=== PATIENT | female | born 1980 ===

== ENCOUNTER 2019-10-09 03:10 | Inpatient (IN) | payer OTHER ==
[~2019-10-09 03:10] MED LIST: ELECTROLYTE-148 SOLN 500 ML IV ONE
[2019-10-09] MEDS ORDERED: ELECTROLYTE-148 SOLN 1,000 ML IV SCH ×2 (04:10→08:45)
[2019-10-09] MEDS ORDERED: AMPICILLIN - 2 GM in SODIUM CHLORIDE 100 ML IVPB ONE (04:30)
[2019-10-09 05:03] VITALS: BMI 36.0
[2019-10-09 05:08] LABS: BASO % 0.4 % (0-2.0); EOS % 0.9 % (0-4.5); HEMATOCRIT 37.1 % (32.4-45.2); HEMOGLOBIN 12.6 GM/dL (10.7-15.3); MCH 30.6 pg (25.7-33.7); MCHC 33.8 g/dl (32.0-36.0); MEAN CELL VOLUME 90.5 fl (80-96); MEAN PLT VOLUME 9.8 fl (7.5-11.1); NEUT % 71.7 % (42.8-82.8); PLATELET COUNT 202 K/MM3 (134-434); RDW 14.4 % (11.6-15.6); WHITE BLOOD COUNT 10.3 K/mm3 (4.0-10.0)
[2019-10-09 05:15] LABS: RETICULOCYTES 1.58 % (0.5-1.5)
[2019-10-09 05:22] LABS: INR 0.86 (0.83-1.09); PROTHROMBIN TIME (PATIENT) 10.1 SEC (9.7-13.0)
[2019-10-09 05:25] LABS: ACTIVATED PTT 26.5 SECONDS (25.2-36.5)
[2019-10-09 05:33] LABS: ALBUMIN 2.7 g/dl (3.4-5.0); BILIRUBIN,TOTAL 0.1 mg/dL (0.2-1); BLOOD UREA NITROGEN 10.3 mg/dL (7-18); CALCIUM 8.9 mg/dL (8.5-10.1); CREATININE 0.6 mg/dL (0.55-1.3); POTASSIUM 3.9 mmol/L (3.5-5.1); TOT PROT 6.2 g/dl (6.4-8.2); URIC ACID 4.6 mg/dL (2.6-7.2)
[2019-10-09 05:53] LABS: URINE APPEARANCE CLEAR; URINE BILIRUBIN NEGATIVE (NEGATIVE); URINE COLOR YELLOW; URINE GLUCOSE (UA) NEGATIVE (NEGATIVE); URINE KETONE NEGATIVE (NEGATIVE); URINE LEUK ESTERASE NEGATIVE (NEGATIVE); URINE NITRITE NEGATIVE (NEGATIVE); URINE PROTEIN NEGATIVE (NEGATIVE); URINE UROBILINOGEN 0.2 mg/dL (0.2-1.0)
[2019-10-09] MEDS ORDERED: AMPICILLIN SODIUM 2 GM VIAL ONE (08:28)
[2019-10-09] MEDS ORDERED: PROMETHAZINE HCL 25 MG/1 ML VIAL ONE (08:29)
[2019-10-09] MEDS ORDERED: BUTORPHANOL TARTRATE 2 MG/ML VIAL ONE (08:29)
[2019-10-09] MEDS ORDERED: AMPICILLIN - 1 GM in SODIUM CHLORIDE 100 ML IVPB SCH (08:30)
[2019-10-09] MEDS ORDERED: PROMETHAZINE HCL 25 MG/1 ML VIAL IVPB ONE (08:34)
[2019-10-09] MEDS ORDERED: BUTORPHANOL TARTRATE 1 MG/ML VIAL IVPB ONE (08:34)
--- NOTE | 2019-10-09 08:34 | HP ---
Past Medical History - Primary Care Physician PCP:: Ulises Oconnor - Admission Chief Complaint: labor. iup at 37 week. obesity History of Present Illness: 39 yo EDC 10/25 2019 EGA 37.5 week with co srom and active labor History Source: Patient Limitations to Obtaining History: No Limitations - Past Medical History ...: 3 ...Para: 2 ...Term: 2 ...: 0 ...Spon : 0 ...Induced : 0 ...Living Children: 2 ...Multiple Gestation: 0 ... Weeks Gestation by Dates: 37.5 ...EDC by Dates: 10/25/19 - Past Surgical History Past Surgical History: Yes: None Hx Myomectomy: No Hx Transabdominal Cerclage: No - Smoking History Smoking history: Never smoked Have you smoked in the past 12 months: No - Alcohol/Substance Use Hx Alcohol Use: No - Social History Usual Living Arrangement: Yes: With Spouse History of Recent Travel: No Home Medications - Allergies Allergies/Adverse Reactions: Allergies Allergy/AdvReac Type Severity Reaction Status Date / Time No Known Drug Allergies Allergy Verified 10/09/19 04:57 Review of Systems - Review of Systems Constitutional: reports: No Symptoms Eyes: reports: No Symptoms HENT: reports: No Symptoms Neck: reports: No Symptoms Cardiovascular: reports: No Symptoms Respiratory: reports: No Symptoms Gastrointestinal: reports: Abdominal Pain Genitourinary: reports: No Symptoms Breasts: reports: No Symptoms Reported Musculoskeletal: reports: No Symptoms Integumentary: reports: No Symptoms Neurological: reports: No Symptoms Endocrine: reports: No Symptoms Hematology/Lymphatic: reports: No Symptoms Psychiatric: reports: No Symptoms Physical Exam - Maternity Vital Signs: Vital Signs Temperature 98.1 F 10/09/19 07:00 Pulse Rate 94 H 10/09/19 07:30 Respiratory Rate 18 10/09/19 04:53 Blood Pressure 115/66 10/09/19 07:30 O2 Sat by Pulse Oximetry (%) Constitutional: Yes: Well Nourished, No Distress, Obese - Abdominal Exam/OB Fundal Height: 38 Number of Fetuses: Single Presentation: Vertex Category: I - Vaginal Exam/OB Dilatation (cm): 4 Effacement (%): 80 Amniotic Membrane Status: Ruptured Presentation: Vertex/Position Station: -1 - Physical Exam Musculoskeletal: Yes: WNL Extremities: Yes: WNL Psychiatric: Yes: WNL, Alert, Oriented - Labs Lab Results: CBC, BMP 10/09/19 04:50 10/09/19 04:50 Hemorrhage Risk Assessment - Risk Factors Risk Score: 0 Risk Level: Low Risk Problem List - Problems (1) 37 weeks gestation of Problems reviewed: Yes Code(s): Z3A.37 - 37 WEEKS GESTATION OF (2) Obesity (BMI 35.0-39.9 without comorbidity) Problems reviewed: Yes Code(s): E66.9 - OBESITY, UNSPECIFIED (3) Labor established Problems reviewed: Yes Code(s): ZWF5922 - Assessment/Plan IUP at 37 week srom Active labor Plan Admit stadol
[2019-10-09] MEDS ORDERED: BISACODYL 10 MG SUPP.RECT PR PRN (08:40)
[2019-10-09] MEDS ORDERED: IBUPROFEN 600 MG TABLET (FP) PO PRN (08:40)
[2019-10-09] MEDS ORDERED: oxyCODONE HCL 5 MG TABLET PO PRN (08:40)
[2019-10-09] MEDS ORDERED: BENZOCAINE 20% 57 GM BOTTLE TP PRN (08:40)
[2019-10-09] MEDS ORDERED: WITCH HAZEL 50% (TUCKS) 40 PAD/JAR PAD TP PRN (08:40)
[2019-10-09] MEDS ORDERED: ACETAMINOPHEN 325 MG TABLET (FP) PO PRN (08:40)
[2019-10-09] MEDS ORDERED: BENZOCAINE 28 GM HEMORRHOIDAL OINTMENT RC PRN (08:40)
[2019-10-09] MEDS ORDERED: METHYLERGONOVINE MALEATE 0.2 MG/1 ML AMP IM PRN (08:40)
--- NOTE | 2019-10-09 08:40 | PN ---
Ante-Partal Exam - Subjective Subjective: Pt with inc pain desires pain meds Vital Signs: Vital Signs Temperature 98.1 F 10/09/19 07:00 Pulse Rate 94 H 10/09/19 07:30 Respiratory Rate 18 10/09/19 04:53 Blood Pressure 115/66 10/09/19 07:30 O2 Sat by Pulse Oximetry (%) Bleeding: No Headache: No Visual changes: No Right upper quadrant pain: No - Contractions Contractions: Yes Regularity: Regular Monitor Mode: External - Exam during Labor Variability: Moderate Heart Rate Location: [facility] Category: I Exam: Vaginal Dilatation (cm): 5 Effacement (%): 100 Amniotic Membrane Status: Ruptured Presentation: Vertex - Intrapartum Hemorrhage Risk Risk Score: 0 Risk Level: Low Risk - Assessment/Plan Assessment/Plan: iup at 37 srom active labor Plan stadol
[2019-10-09] MEDS ORDERED: OXYTOCIN 20 UNITS in 0.9% NS 20 UNIT/1,000 ML INFUS.BAG IV ONE (08:53)
[2019-10-09] MEDS ORDERED: PCA PUMP NR ONE (09:11)
[2019-10-09] MEDS ORDERED: FENTANYL/BUPIVACAINE/NS/PF - PCEA - 50 ML DISP.SYRIN EP ONE (09:11)
[2019-10-09] MEDS ORDERED: NALOXONE HCL 0.4 MG/ML VIAL IVPUSH PRN (10:11)
[2019-10-09] MEDS ORDERED: FENTANYL/BUPIVACAINE/NS/PF - PCEA - 50 ML DISP.SYRIN EP SCH (10:15)
[2019-10-09 11:42] LABS: CORD BASE EXCESS -3.4 mmol/L (0-2); CORD PCO2 51.1 mmHg (30-78); CORD pH 7.29 (7.14-7.44)
[2019-10-09 11:46] LABS: CORD BASE EXCESS -4.5 mmol/L (0-2); CORD HCO3 20.6 mmHg (20-29); CORD PCO2 38.5 mmHg (30-78); CORD pH 7.347 (7.14-7.44)
--- NOTE | 2019-10-09 14:04 | PN ---
Delivery - Delivery Vaginal Delivery: No Problems Type of Anesthesia: Epidural Episiotomy/Laceration: None EBL (cc): 300 Delivery, Single - Stages of Labor Date 1st Stage Initiatied: 10/09/19 Time 1st Stage Initiated: 08:00 Date 2nd Stage Initiated: 10/09/19 Time 2nd Stage Initiated: 10:25 Date of Delivery: 10/09/19 Time of Delivery: 10:37 Time Placenta Delivered: 10:40 Placenta: Yes: Spontaneous - Condition of Infant Aircraft Parts Assembler/Plate Conditioner Present: No Infant Gender: Male Position: Left, OA Total Hours ROM (Hrs/Mins): 8h55m - 1 Minute Total Score: 9 5 Minutes Total Score: 9 - Feeding Plan Initial Plan: Elected not to breastfeed exclusively throughout hospitalization
[2019-10-09] MEDS ORDERED: OXYTOCIN 20 UNITS in 0.9% NS 20 UNIT/1,000 ML INFUS.BAG IV SCH (14:15)
[2019-10-10 06:13] VITALS: PULSE 90
[2019-10-10 08:15] LABS: BASO % 0.3 % (0-2.0); EOS % 1.9 % (0-4.5); HEMATOCRIT 34.4 % (32.4-45.2); HEMOGLOBIN 11.5 GM/dL (10.7-15.3); LYMPH % 25.2 % (8-40); MCH 31.3 pg (25.7-33.7); MCHC 33.6 g/dl (32.0-36.0); MEAN CELL VOLUME 93.3 fl (80-96); MEAN PLT VOLUME 10.3 fl (7.5-11.1); MONO % 5.4 % (3.8-10.2); NEUT % 67.2 % (42.8-82.8); PLATELET COUNT 160 K/MM3 (134-434); RBC 3.68 M/mm3 (3.60-5.2); RDW 14.4 % (11.6-15.6); WHITE BLOOD COUNT 10.5 K/mm3 (4.0-10.0)
--- NOTE | 2019-10-10 09:45 | PN ---
Post Progress Note - Subjective Subjective: Doing well Ready to go home. Type of Delivery: Vital Signs: Vital Signs Temperature 97.7 F 10/10/19 06:00 Pulse Rate 90 10/10/19 06:00 Respiratory Rate 18 10/10/19 06:00 Blood Pressure 90/60 10/10/19 06:00 O2 Sat by Pulse Oximetry (%) 100 10/09/19 10:30 Breast Exam: Yes: Soft Uterus: Yes: Fundus Firm Lochia: Yes: Rubra Lochia, amount: Small Extremities: Yes: Calves non-tender - Labs Labs: CBC WBC 10.5 K/mm3 (4.0-10.0) H 10/10/19 07:00 RBC 3.68 M/mm3 (3.60-5.2) 10/10/19 07:00 Hgb 11.5 GM/dL (10.7-15.3) 10/10/19 07:00 Hct 34.4 % (32.4-45.2) 10/10/19 07:00 MCV 93.3 fl (80-96) 10/10/19 07:00 MCH 31.3 pg (25.7-33.7) 10/10/19 07:00 MCHC 33.6 g/dl (32.0-36.0) 10/10/19 07:00 RDW 14.4 % (11.6-15.6) 10/10/19 07:00 Plt Count 160 K/MM3 (134-434) D 10/10/19 07:00 MPV 10.3 fl (7.5-11.1) 10/10/19 07:00 Absolute Neuts (auto) 7.0 K/mm3 (1.5-8.0) 10/10/19 07:00 Neutrophils % 67.2 % (42.8-82.8) 10/10/19 07:00 Lymphocytes % 25.2 % (8-40) D 10/10/19 07:00 Monocytes % 5.4 % (3.8-10.2) 10/10/19 07:00 Eosinophils % 1.9 % (0-4.5) D 10/10/19 07:00 Basophils % 0.3 % (0-2.0) 10/10/19 07:00 Nucleated RBC % 0 % (0-0) 10/10/19 07:00 Retic Count 1.58 % (0.5-1.5) H 10/09/19 04:50 Haptoglobin 133 mg/dL (33-278) 10/09/19 04:50 Problem List - Problems (1) Normal course Code(s): Z39.2 - ENCOUNTER FOR ROUTINE FOLLOW-UP Assessment/Plan Doing well. Instructed. Discharge.
--- NOTE | 2019-10-10 09:57 | DS ---
Physical Exam-NETWORK PLANNER Vital Signs: Vital Signs Temperature 97.7 F 10/10/19 06:00 Pulse Rate 90 10/10/19 06:00 Respiratory Rate 18 10/10/19 06:00 Blood Pressure 90/60 10/10/19 06:00 O2 Sat by Pulse Oximetry (%) 100 10/09/19 10:30 Constitutional: Yes: Well Nourished, No Distress, Calm Eyes: Yes: WNL, Conjunctiva Clear, EOM Intact HENT: Yes: WNL, Atraumatic, Normocephalic Neck: Yes: WNL, Supple, Trachea Midline Cardiovascular: Yes: WNL, Regular Rate and Rhythm Respiratory: Yes: WNL, Regular, CTA Bilaterally Gastrointestinal: Yes: WNL ...Rectal Exam: Yes: WNL Renal/: Yes: WNL Internal Exam Deferred: Yes Breast(s): Yes: WNL Musculoskeletal: Yes: WNL Extremities: Yes: WNL Integumentary: Yes: WNL Neurological: Yes: WNL, Alert, Oriented ...Motor Strength: WNL Psychiatric: Yes: WNL, Alert, Oriented Labs: CBC, BMP 10/10/19 07:00 10/09/19 04:50 Delivery - Delivery Vaginal Delivery: No Problems Type of Anesthesia: Epidural Episiotomy/Laceration: None EBL (cc): 300 Delivery, Single - Stages of Labor Date 1st Stage Initiatied: 10/09/19 Time 1st Stage Initiated: 08:00 Date 2nd Stage Initiated: 10/09/19 Time 2nd Stage Initiated: 10:25 Date of Delivery: 10/09/19 Time of Delivery: 10:37 Time Placenta Delivered: 10:40 Placenta: Yes: Spontaneous - Condition of Infant Gallery Manager/Basic Combatant Swimmer Present: No Gender: Male Position: Left, OA Total Hours ROM (Hrs/Mins): 8h55m - 1 Minute Total Score: 9 5 Minutes Total Score: 9 - Feeding Plan Initial Plan: Elected not to breastfeed exclusively throughout hospitalization Remarks - Remarks Remarks: Good recovery. Discharge Summary Problems reviewed: Yes Reason For Visit: ADMIT LABOR Current Active Problems 37 weeks gestation of (Acute) Labor established (Acute) Normal course (Acute) Obesity (BMI 35.0-39.9 without comorbidity) (Acute) Hospital Course: WNL Plan of Treatment: Instructed. Condition: Good - Instructions Diet, Activity, Other Instructions: Physical activity Resume your normal everyday activity as tolerated no heavy lifting or exercise until seen by your surgeon. You may walk unlimited adrianna of and climb stairs. You may resume driving the car when you feel safe and comfortable behind the wheel. No sexual activity as instructed. Wound care If you have a bandage, leave it on, and keep dry for 48-72 hours. After that time discard the outer bandage. If they are tapes on the skin under the out of bandage leave them in place. They will peel off in the next 7 to 10 days. Do Not Peel them off. You may shower the day after surgery. If there are tapes present on the skin, you may shower over them. Diet There are no dietary restrictions. Eat healthy, high-fiber foods. Drink 6 to 8 glasses of liquid each day. This will assist in keeping your bowels are regular. Pain management You may take Tylenol or acetaminophen or Ibuprofen (for example, Motrin, Advil etc.) from my pain prescription medication is ordered should be taken as prescribed for moderate to severe pain. Call MD for any of the following: Severe pain not relieved by medication Fever of 101 or higher Excessive bleeding or drainage on dressing Inability to urinate Referrals: Ulises Oconnor MD [Staff Physician] - Disposition: HOME
[2019-10-10 10:35] VITALS: BP 121/85; TEMP 98.8
== END 2019-10-10 17:15 | disposition home or self-care (01) | DRG 807 ==
LOC: JLDR 03:10 → J3W 13:00
PROVIDERS: ADMIT Obstetrics & Gynecology; ATTEND Obstetrics & Gynecology
PROC: 10E0XZZ Delivery of Products of Conception, External Approach (ICD-10-PCS; principal; 2019-10-09)
DX: O42.02 Full-term premature rupture of membranes, onset of labor within 24 hours of rupture (principal); Z37.0 Single live birth; O99.214 Obesity complicating childbirth; E66.9 Obesity, unspecified; Z3A.37 37 weeks gestation of pregnancy
CPT/HCPCS: 36415; 36600; 59409; 80053; 81003; 82803; 82977; 83010; 84550; 85025; 85032; 85045; 85610; 85730; 86780; 86850; 86900; 86901; 87389; U0003